=== PATIENT | male | born 1945 | race Caucasian/White ===

== ENCOUNTER 2019-10-02 12:41 | Inpatient (IN) | payer MEDICARE, OTHER, SELFPAY ==
[2019-10-02] VITALS (8 sets, daily range): BP systolic 98–167; BP diastolic 64–90; PULSE 67–75; RESP 14–22; TEMP 36.9–38.4; O2SAT 91–97; BMI 32.5
--- NOTE | ~2019-10-02 | XR_ITS ---
EXAMINATION: XR chest 1V portable INDICATION: Shortness of breath TECHNIQUE: Portable AP chest at 1401 hours COMPARISON: None available FINDINGS: There are airspace opacities of the mid and lower lung zones. No pleural effusion or pneumo thorax is identified. The cardiomediastinal silhouette is normal. IMPRESSION: 1. Airspace opacities of the mid and lower lung zones, consistent with pneumonia versus atelectasis. Reviewed, dictated and finalized at location A. IMPRESSION: 1. Airspace opacities of the mid and lower lung zones, consistent with pneumoni a versus atelectasis.
--- NOTE | 2019-10-02 13:19 | ECG_ITS ---
Measurements Intervals [place] Rate: 67 P: 21 TN: 149 QRS: 5 QRSD: 134 T: -11 QT: 428 QTc: 454 Interpretive Statements SINUS RHYTHM POSSIBLE LEFT ATRIAL ENLARGEMENT RIGHT BUNDLE BRANCH BLOCK BASELINE ARTIFACT- I, III, AVL, V1 ABNORMAL ECG Electronically Signed On 10-02-2019 16:50:25 CDT by Willem Blank D.O.
--- NOTE | 2019-10-02 13:28 | PC.NURSE ---
COVID swab sent to lab
[2019-10-02 13:33] LABS: Basophils Percent Auto 0.2 % (0.2-1.2); Eosinophils Percent Auto 0.2 % (0-4.4); Hematocrit 49.6 % (42.0-52.0); Hemoglobin 16.7 g/dL (14.0-18.0); Immature Granulocyte Absolute 0.01 K/mm3 (0.00-0.031); Immature Granulocyte Percent A 0.2 % (0-0.5); Lymphocytes Absolute Auto 1.04 K/mm3 (0.9-3.2); Mean Corpuscular HGB Conc 33.7 g/dl (32-36); Mean Corpuscular Hemoglobin 31.9 pg (26-34); Mean Corpuscular Volume 94.7 fl (80-100); Mean Platelet Volume 10.4 fl (7.4-10.4); Monocytes Absolute Auto 0.6 K/mm3 (0.1-0.6); Monocytes Percent Auto 10.1 % (2.6-8.5); Neutrophils Absolute Auto 3.8 K/mm3 (1.3-6.7); Neutrophils Percent Auto 70.3 % (45.5-73.1); Platelet Count Result 176 k/mm3 (150-375); Red Blood Count 5.24 M/mm3 (4.6-6.20); Red Cell Distribution Width 12.3 % (11.5-14.5); White Blood Count 5.5 K/mm3 (4.5-10.0)
[2019-10-02 13:38] LABS: Alveolar/Arterial O2 Gradient 52.8 mmHg; Base Excess ABG 0.8 mEq/l (+/-2.0); Carboxyhemoglobin 0.5 % THb (0-2.0); Fractional Inspired Oxygen 21 %; HCO3 ABG 23.8 mEq/l (22.0-26.0); Methemoglobin ABG 0.2 %THb (0-1.5); Oxygen Content ABG 21.8 %vol (16.0-22.0); Oxygen Saturation ABG 91.1 % (95.0-100.0); Oxyhemoglobin 91.3 % THb (90.0-100.0); PO2 ABG 56.2 mmHg (80.0-100.0); PO2 FiO2 Ratio Arterial Blood 2.68 %; pH ABG 7.463 (7.350-7.450)
[2019-10-02 13:39] LABS: Device ROOM AIR; Modified Allen's Test Pass; Site Drawn RIGHT RADIAL
[2019-10-02 13:46] LABS: Prothrombin Time 13.2 Seconds (11.1-14.7)
[2019-10-02 13:47] LABS: Partial Thromboplastin Time 32.7 SECONDS (22.3-36.8)
[2019-10-02 13:49] LABS: Alanine Aminotransferase 41 U/L (4-50); Albumin Level 3.9 g/dL (3.5-5.1); Alkaline Phosphatase 84 U/L (38-126); Aspartate Amino Transferase 65 U/L (17-59); Bilirubin,Total 0.7 mg/dL (0.2-1.3); Blood Urea Nitrogen 18 mg/dL (9-20); Calcium 8.5 mg/dL (8.4-10.2); Carbon Dioxide 27 mmol/L (22-30); Chloride 101 mmol/L (98-107); Estimated CRCL calculation 88 ml/min; Estimated Glomerular Filt Rate > 60; Glucose 99 mg/dL (75-110); Potassium 4.4 mmol/L (3.4-5.0); Sodium 135 mmol/L (137-145)
[2019-10-02 13:56] LABS: Troponin I < 0.012 ng/mL (0.000-0.034)
[2019-10-02 13:58] LABS: CRP 16.2 mg/dL (<1.0)
--- NOTE | 2019-10-02 15:07 | ED.GENADULT ---
HPI - General Adult General Chief complaint: Shortness of Breath/Dyspnea Stated complaint: COVID symptoms Time Seen by Provider: 10/02/19 13:16 Source: patient and family History of Present Illness HPI narrative: 74 years old white male, lives alone, been complaining of feeling sick 8 days ago. Patient been having headache, dry cough, shortness of breath on exertion. Patient denied exposure to anybody with known having COVID-19. Patient attended a wedding libertarian of 120 people 1 week ago without a mask. Patient's daughter is a nurse. Related Data Home Medications Medication Instructions Recorded Confirmed amlodipine 10/02/19 aspirin 81 mg PO DAILY 10/02/19 latanoprost 10/02/19 rosuvastatin mg 10/02/19 vitamin B complex [B tablet 10/02/19 Complex-Vitamin B12] Allergies Allergy/AdvReac Type Severity Reaction Status Date / Time No Known Allergies Allergy Unknown Verified 10/02/19 13:17 Review of Systems Review of Systems: Narrative: CONSTITUTIONAL: Denies fever, chills, or sweats. EYES: Denies visual changes, redness, or discharge. ENT: Denies rhinorrhea, congestion, sore throat, or otalgia. CARDIOVASCULAR: Denies chest pain, palpitations, or edema. RESPIRATORY: Denies cough or dyspnea. GASTROINTESTINAL: Denies abdominal pain, nausea, vomiting, or diarrhea. GENITOURINARY: Denies dysuria or hematuria. SKIN: Denies rash or itching. MUSCULOSKELETAL: Denies back pain, joint pain, or myalgia. NEUROLOGIC: Denies headache, numbness, or weakness. PSYCHIATRIC: Denies anxiety or depression. PMFSH Family History Family History Mother Diabetes mellitus Family history of malignant neoplasm of bone Father Family history of congenital heart disease Social History Social History Smoking status: Never smoker Exam Narrative: Exam Narrative: General appearance: Well-developed, well-nourished, daughter at the bedside Skin: Normal color Head: Normocephalic, nontraumatic Eyes: Clear conjunctiva ENT: Oropharynx normal, ears normal, nose normal Neck: Supple, nontender Chest and respiratory: Mild diminution of air entry bilaterally, few scattered rales and rhonchi. Heart: Regular rate/rhythm Abdomen: Soft, nontender, no organomegaly, quiet bowel sounds Vascular: Normal peripheral pulses, normal capillary refill. 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 Labs, chest x-ray, blood culture, ABG on room air, IV fluids, IV Tylenol ordered. Further plan to follow Differential Diagnosis Differential Diagnosis: Pneumonia, bronchitis, COVID-19, viral syndrome. Vital Signs Vital Signs: Vital Signs Temperature 36.9 C 10/02/19 13:07 Pulse Rate 69 10/02/19 13:07 Respiratory Rate 18 10/02/19 13:07 Blood Pressure 145/89 H 10/02/19 13:07 Pulse Oximetry 92 10/02/19 13:07 Temperature 36.9 C 10/02/19 13:07 Pulse Rate 68 10/02/19 13:55 Respi
--- NOTE | 2019-10-02 19:31 | PC.NURSE ---
This patient, Alpesh Clement, was admitted to [facility] Surg Room 325-01. Patient/family oriented to hospital policies and general routines including ID bracelet, bed and alarms, visiting hours, pain management, procedures, bathroom and other care routines, personal items, smoking policy, room service/diet, and visiting hours. Valuables list has been completed. Information on how to activate the Rapid Response Team has been discussed. Patient/Family are encouraged to report perceived risks to care and to ask questions if they do not understand what they are told or what they should do.
[2019-10-02] MEDS: LACTATED RINGERS 1,000 ML 125 ML IV CONT (20:02)
--- NOTE | 2019-10-02 21:43 | PM.IMHP ---
H&P: HPI History of Present Illness Chief complaint: pneumonia,covid 19 like symptoms Narrative: Alpesh Clement is a 74 year old male who lives home alone. The patient stated he has been ill for at least 6 days. The patient did attend his granddaughter's wedding which consisted of 120 people about a week ago he was there without a mask. His daughter is a nurse as well. He has a nagging dry cough. He coughs so hard that it causes him to have some pleural like pain. He is not coughing anything up. He has been running a fever at least 101 for several days. He just lost his appetite but does not have any loss of smell or taste. Patient said he ate some yogurt today and it tasted normal. He has not had any nausea vomiting or diarrhea. He is not aware of any sick contacts. He has only taken Tylenol for the fever. Patient's O2 saturations were 91 and 92% on room air when he came in so he was placed on oxygen at 2 L per nasal cannula. The patient continues to complain of pleural like pain when he coughs. Patient is being checked for covid 19. Blood cultures and sputum cultures are pending. ABGs was 56.2. AST is 65. C reactive protein is 16.2. Covid 19 pending. Opacities of the mid and lower lung zones consistent with pneumonia versus atelectasis. The patient was empirically started on a Zithromax and Rocephin. Date of service is 10/02/2019 Review of Systems Review of Systems: All systems reviewed & are unremarkable except as noted in HPI and below Constitutional: Constitutional: Reports as per HPI and Reports no additional constitutional complaints Eyes: Eyes: Reports as per HPI and Reports no additional eye complaints ENT: Reports system reviewed and no additional complaints, except as documented and Reports Normal hearing present Cardiovascular: Cardiovascular: Reports no additional cardiovascular complaints Respiratory: Respiratory: Reports no additional respiratory complaints and Reports no additional respiratory complaints Gastrointestinal: Gastrointestinal: Reports as per HPI and Reports no additional gastrointestinal complaints Musculoskeletal: Musculoskeletal: Reports no additional musculoskeletal complaints Integumentary/Breasts: Skin/Breast: Reports system reviewed and no additional complaints, except as docu and Reports as per HPI Neurologic: Reports system reviewed and no additional complaints, except as documented, Reports as per HPI and Reports Normal hearing present Psychiatric: Psychiatric: Reports no additional psychiatric complaints and Reports as per HPI Endocrine: Endocrine: Reports no additional endocrine complaints Hematologic/Lymphatic: Hematologic/Lymphatic: Reports no additional hematologic/lymphatic complaints Allergic/Immunologic: Allergic/Immunologic: Reports no additional allergic/immunologic complaints [facility] Past Medical History Medical History (Updated 10/02/19 @ 21:50 by Kimmie Kenney NP) Glaucoma Hyperlipidemia Hypertension Surgical History Surgical History (Updated 10/02/19 @ 21:50 by Kimmie Kenney NP) History of back surgery History of removal of pigmented skin lesion History of tonsillectomy Family History Family History Mother Diabetes mellitus Family history of malignant neoplasm of bone Father Family history of congenital heart disease Social History Social History (Updated 10/02/19 @ 21:52 by Kimmie Kenney NP) Social History: The patient has 3 daughters. He is . He lives home alone. Lifelong nonsmoker. He does have a glass a wine with dinner every day. He does not have a durable power attorney recruiter for healthcare. Patient tells me that he is a full code. He would like to be intubated if need be. [place] Smoking status: Never smoker Alcohol intake: current Drinks per week: 10 Substance use: never Substance use type: does not use Gender identity (if verbalized by
[2019-10-02] MEDS: ROSUVASTATIN 10 MG TABLET PO (22:34)
[2019-10-03] VITALS (9 sets, daily range): BP systolic 100–147; BP diastolic 55–77; PULSE 63–66; RESP 18–20; TEMP 36.3–38.4; O2SAT 90–95
[2019-10-03] MEDS: guaiFENesin/DEXTROMETHORPHAN 10 ML UDC PO ×2 (02:48→07:41)
[2019-10-03] MEDS: LACTATED RINGERS 1,000 ML 125 ML IV CONT (05:20)
[2019-10-03 06:07] LABS: Basophils Percent Auto 0.2 % (0.2-1.2); Eosinophils Percent Auto 0.6 % (0-4.4); Hemoglobin 15.6 g/dL (14.0-18.0); Immature Granulocyte Absolute 0.02 K/mm3 (0.00-0.031); Immature Granulocyte Percent A 0.4 % (0-0.5); Lymphocytes Absolute Auto 1.49 K/mm3 (0.9-3.2); Lymphocytes Percent Auto 30.6 % (18.3-44.2); Mean Corpuscular HGB Conc 33.2 g/dl (32-36); Mean Corpuscular Hemoglobin 31.5 pg (26-34); Mean Corpuscular Volume 94.8 fl (80-100); Monocytes Absolute Auto 0.7 K/mm3 (0.1-0.6); Monocytes Percent Auto 13.8 % (2.6-8.5); Neutrophils Absolute Auto 2.7 K/mm3 (1.3-6.7); Neutrophils Percent Auto 54.4 % (45.5-73.1); Platelet Count Result 171 k/mm3 (150-375); Red Blood Count 4.96 M/mm3 (4.6-6.20); Red Cell Distribution Width 12.2 % (11.5-14.5); White Blood Count 4.9 K/mm3 (4.5-10.0)
[2019-10-03 06:24] LABS: Lactic Acid 1.1 mmol/L (0.7-2.1)
[2019-10-03 06:42] LABS: Alanine Aminotransferase 36 U/L (4-50); Albumin Level 3.4 g/dL (3.5-5.1); Alkaline Phosphatase 74 U/L (38-126); Aspartate Amino Transferase 57 U/L (17-59); Bilirubin,Total 0.6 mg/dL (0.2-1.3); Blood Urea Nitrogen 15 mg/dL (9-20); CRP 15.1 mg/dL (<1.0); Calcium 8.2 mg/dL (8.4-10.2); Carbon Dioxide 29 mmol/L (22-30); Chloride 100 mmol/L (98-107); Estimated CRCL calculation 86 ml/min; Estimated Glomerular Filt Rate > 60; Glucose 93 mg/dL (75-110); Magnesium 2.2 mg/dL (1.6-2.3); Potassium 4.3 mmol/L (3.4-5.0); Sodium 135 mmol/L (137-145)
[2019-10-03] MEDS: ASPIRIN 81 MG ENTERIC TABLET PO (07:41)
[2019-10-03] MEDS: VITAMIN B COMPLEX CAPSULE 1 CAP PO (07:41)
[2019-10-03] MEDS: ENOXAPARIN 40 MG/0.4 ML SYRINGE SUB-Q (07:41)
[2019-10-03] MEDS: LATANOPROST 0.005% OP SOLN 2.5 ML BTL 1 DROP EACH EYE (07:41)
[2019-10-03] MEDS: amLODIPine BESYLATE 5 MG TABLET PO (07:41)
--- NOTE | 2019-10-03 09:34 | PM.IMPN ---
Progress Note: A&P Assessment and Plan (1) Pneumonia due to 2019 novel coronavirus: Code(s): U07.1 - COVID-19; J12.89 - Other viral pneumonia Status: Acute Assessment and Plan: Positive result on 10/03/2019. CXR demonstrates airspace opacities of the mid and lower lung zones.He has been febrile with T-max 101.2?. No leukocytosis. CRP is elevated. He is maintaining adequate oxygenation on 2 L nasal cannula. Will discontinue Rocephin and azithromycin at this time. Begin dexamethasone 6 mg daily for 10 days. IV fluids have been discontinued given risk for fluid overload. Oxygen as needed with goal O2 92% or above. Wean to goal. Continue supportive care with Tylenol as needed for fever, guaifenesin for cough, and albuterol as needed. Continue to trend acute phase reactants and CXR for changes. Preliminary blood culture show NGTD. Sputum culture is pending. (2) Hypertension: Qualifiers: Hypertension type: essential hypertension Qualified Code(s): I10 - Essential (primary) hypertension Code(s): I10 - Essential (primary) hypertension Status: Chronic Assessment and Plan: Blood pressure was reviewed and is stable though somewhat labile. Continue amlodipine Monitor blood pressure closely (3) Hyperlipidemia: Qualifiers: Hyperlipidemia type: unspecified Qualified Code(s): E78.5 - Hyperlipidemia, unspecified Code(s): E78.5 - Hyperlipidemia, unspecified Status: Chronic Assessment and Plan: LFTs reviewed and are within normal limits. Continue with rosuvastatin Subjective Date/time seen: 10/03/19 09:34 Interval history: Date of service: 10/03/2019 He is doing a bit better today. He feels his shortness of breath is very mildly improved. His cough is about the same as yesterday, and he continues to endorse dry cough which is exacerbated by taking deep breaths. He continues to endorse mild pleuritic pain in the midsternal region which is worsened by coughing. He feels that he is just a little sore all over. He also has a headache that is currently a 3/10 in the temporal region. Last night he said it was about a 9/10. He denies any associated visual changes or confusion. His appetite has been good, and he denies any changes in smell or taste. He does feel weak and lightheaded, and he notes that his lightheadedness is worsened when he has a coughing episode. He denies dizziness. He has not been ambulating around the room. He is urinating regularly and denies dysuria or hematuria. His last bowel movement was approximately 2 days ago. He denies diarrhea. He had trouble sleeping last night due to his headache. He denies abdominal pain, nausea, or vomiting. He endorsed subjective fever and chills. Review of Systems Review of Systems: Narrative: A 12 point review of systems was reviewed with pertinent positives and negatives as per HPI. Exam Narrative: Exam Narrative: Mr. Clement is examined alone today. He is a well-nourished 74-year-old male who is lying supine in bed. He appears comfortable and is in no acute respiratory distress. HR 73, BP 145/82, R 18, T 98.8?, 98% on 2 L. Neuro: awake, alert and oriented x4, speech clear, no focal neuro deficits noted HEENMT: normocephalic, atraumatic, EOMI, sclerae anicteric, moist oral mucosa, normal oropharynx Neck: supple, no lymphadenopathy Respiratory: Scattered rhonchi which clear with coughing, no wheezes,, normal respiratory effort without accessory muscle use Cardio: regular rate, regular rhythm, normal S1-S2 Abdomen: normal to inspection, nondistended, normoactive bowel sounds, soft, nontender to palpation Extremities: BLE without edema, erythema, cyanosis, or clubbing, no pain to palpation, DP pulses 2+ bilaterally Skin: no rashes or lesions, warm and dry Psych: Pleasant and cooperative, appropriate mood and affect, judgment and insight intact Objective Data Vital Signs
[2019-10-03 14:26] LABS: SARS-CoV-2 RNA PCR Positive
--- NOTE | 2019-10-03 14:45 | PC.NURSE ---
Called and notified Mandy BARKLEY that patient COVID is positive.
[2019-10-03] MEDS: DOCUSATE SODIUM 100 MG CAPSULE PO (18:22)
[2019-10-03] MEDS: ROSUVASTATIN 10 MG TABLET PO (21:36)
[2019-10-04 02:00] VITALS: BP 116/62; PULSE 64; RESP 18; TEMP 36.9; O2SAT 94
[2019-10-04 06:00] VITALS: BP 120/71; PULSE 64; RESP 18; TEMP 37.2; O2SAT 96
[2019-10-04 06:03] LABS: Hematocrit 46.2 % (42.0-52.0); Hemoglobin 15.6 g/dL (14.0-18.0); Mean Corpuscular HGB Conc 33.8 g/dl (32-36); Mean Corpuscular Volume 94.7 fl (80-100); Mean Platelet Volume 9.8 fl (7.4-10.4); Platelet Count Result 208 k/mm3 (150-375); Red Blood Count 4.88 M/mm3 (4.6-6.20); White Blood Count 4.7 K/mm3 (4.5-10.0)
[2019-10-04 06:22] LABS: Alanine Aminotransferase 47 U/L (4-50); Albumin Level 3.5 g/dL (3.5-5.1); Alkaline Phosphatase 84 U/L (38-126); Aspartate Amino Transferase 66 U/L (17-59); Bilirubin,Total 0.5 mg/dL (0.2-1.3); Blood Urea Nitrogen 16 mg/dL (9-20); CRP 7.2 mg/dL (<1.0); Calcium 8.2 mg/dL (8.4-10.2); Carbon Dioxide 27 mmol/L (22-30); Chloride 102 mmol/L (98-107); Creatine Kinase 68 U/L (55-170); Estimated CRCL calculation 97 ml/min; Estimated Glomerular Filt Rate > 60; Glucose 95 mg/dL (75-110); Lactate Dehydrogenase 473 U/L (313-618); Potassium 4.3 mmol/L (3.4-5.0); Sodium 135 mmol/L (137-145)
[2019-10-04] MEDS: LATANOPROST 0.005% OP SOLN 2.5 ML BTL 1 DROP EACH EYE (08:34)
[2019-10-04] MEDS: VITAMIN B COMPLEX CAPSULE 1 CAP PO (08:34)
[2019-10-04] MEDS: polyethylene glycoL 3350 17 GM POWD.PACK PO (08:34)
[2019-10-04] MEDS: ASPIRIN 81 MG ENTERIC TABLET PO (08:35)
[2019-10-04] MEDS: amLODIPine BESYLATE 5 MG TABLET PO (08:35)
[2019-10-04] MEDS: ENOXAPARIN 40 MG/0.4 ML SYRINGE SUB-Q (08:35)
[2019-10-04 10:52] VITALS: BP 122/70; PULSE 65; RESP 18; TEMP 36.9; O2SAT 97
--- NOTE | 2019-10-04 14:06 | PM.IMPN ---
Progress Note: A&P Assessment and Plan (1) Pneumonia due to 2019 novel coronavirus: Code(s): U07.1 - COVID-19; J12.89 - Other viral pneumonia Status: Acute Assessment and Plan: Positive result on 10/03/2019. CXR demonstrates airspace opacities of the mid and lower lung zones. T-max 101.2? and he has been afebrile today. No leukocytosis. CRP elevated but improved. He is maintaining adequate oxygenation on 2 L nasal cannula. Rocephin and azithromycin discontinued on 10/02. Will hold off on Dexamethasone at this time given his stable, low oxygen requirements Oxygen as needed with goal O2 92% or above. Continue to wean oxygen. Continue supportive care with Tylenol as needed for fever, guaifenesin for cough, and albuterol as needed. Continue to trend acute phase reactants and CXR for changes. Preliminary blood culture show NGTD. Preliminary sputum culture shows mixed bacterial philly. (2) Hypertension: Qualifiers: Hypertension type: essential hypertension Qualified Code(s): I10 - Essential (primary) hypertension Code(s): I10 - Essential (primary) hypertension Status: Chronic Assessment and Plan: Blood pressure was reviewed and is generally at target Continue amlodipine Monitor blood pressure closely (3) Hyperlipidemia: Qualifiers: Hyperlipidemia type: unspecified Qualified Code(s): E78.5 - Hyperlipidemia, unspecified Code(s): E78.5 - Hyperlipidemia, unspecified Status: Chronic Assessment and Plan: LFTs reviewed and are within normal limits. Continue with rosuvastatin (4) Obstructive sleep apnea: Code(s): G47.33 - Obstructive sleep apnea (adult) (pediatric) Status: Acute Assessment and Plan: Stable on home CPAP Avoid CPAP use while in hospital as he is COVID positive Continue supplemental oxygen as needed Subjective Date/time seen: 10/04/19 14:06 Interval history: Date of service: 10/04/2019 He is feeling a bit better today. He continues to endorse occasional dry cough, especially with deep breaths. He denies any associated chest pain or shortness of breath. He denies fevers or chills. His appetite has been good. He has not had a BM yet this hospital stay. He is urinating regularly without dysuria or hematuria. No headache today. Denies dizziness, lightheadedness, nausea, vomiting, diarrhea, abdominal pain, or weakness. He has no additional concerns. Review of Systems Review of Systems: Narrative: A 12 point review of systems was reviewed with pertinent positives and negatives as per HPI. Exam Narrative: Exam Narrative: Mr. Clement is examined alone today. He is a well-nourished 74-year-old male who is lying supine in bed. He appears comfortable and is in no acute respiratory distress. HR 64, BP 120/71, RR 18, T 98.0?, 96% on 2 L. Neuro: awake, alert and oriented x4, speech clear, no focal neuro deficits noted HEENMT: normocephalic, atraumatic, EOMI, sclerae anicteric, moist oral mucosa, normal oropharynx Neck: supple, no lymphadenopathy Respiratory: Scattered rhonchi which clear with coughing, no wheezes, nonlabored breathing Cardio: regular rate, regular rhythm with S1-S2 Abdomen: nondistended, normoactive bowel sounds, soft, nontender to palpation Extremities: no edema, erythema, cyanosis, clubbing, or tenderness to palpation, DP pulses 2+ bilaterally Skin: no rashes or lesions, warm and dry Psych: Pleasant and cooperative, appropriate mood and affect, judgment and insight intact Objective Data Vital Signs Vital Signs: Vital Signs - 24 hr 10/03/19 18:00 10/03/19 20:41 10/03/19 22:00 Temperature 97.4 F L 98.3 F Pulse Rate 63 65 Respiratory Rate 20 20 Blood Pressure 147/77 H 132/65 Pulse Oximetry 95 93 94 10/04/19 02:00 10/04/19 06:00 10/04/19 10:52 Temperature 98.4 F 99.0 F 98.4 F Pulse Rate 64 64 65 Respiratory Rate 18 18 18 Blood Pressure 116/62 120/71 122/70
[2019-10-04 14:36] VITALS: BP 131/70; PULSE 64; RESP 18; TEMP 37; O2SAT 96
[2019-10-04] MEDS: guaiFENesin/DEXTROMETHORPHAN 10 ML UDC PO (17:02)
[2019-10-04 18:00] VITALS: BP 134/71; PULSE 64; RESP 18; TEMP 37.1; O2SAT 96
[2019-10-04] MEDS: ROSUVASTATIN 10 MG TABLET PO (19:59)
[2019-10-04 22:00] VITALS: BP 126/80; PULSE 72; RESP 18; TEMP 36.5; O2SAT 93
[2019-10-05] VITALS (9 sets, daily range): BP systolic 104–143; BP diastolic 63–81; PULSE 63–76; RESP 16–18; TEMP 36.3–37.2; O2SAT 91–96
[2019-10-05 06:04] LABS: Hematocrit 50.2 % (42.0-52.0); Hemoglobin 16.7 g/dL (14.0-18.0); Mean Corpuscular HGB Conc 33.3 g/dl (32-36); Mean Corpuscular Hemoglobin 32.1 pg (26-34); Mean Corpuscular Volume 96.4 fl (80-100); Mean Platelet Volume 9.6 fl (7.4-10.4); Platelet Count Result 214 k/mm3 (150-375); Red Blood Count 5.21 M/mm3 (4.6-6.20); Red Cell Distribution Width 11.9 % (11.5-14.5); White Blood Count 4.4 K/mm3 (4.5-10.0)
[2019-10-05 06:22] LABS: Alanine Aminotransferase 47 U/L (4-50); Albumin Level 3.7 g/dL (3.5-5.1); Alkaline Phosphatase 92 U/L (38-126); Aspartate Amino Transferase 59 U/L (17-59); Bilirubin,Total 0.6 mg/dL (0.2-1.3); Blood Urea Nitrogen 16 mg/dL (9-20); CRP 5.4 mg/dL (<1.0); Calcium 8.7 mg/dL (8.4-10.2); Carbon Dioxide 26 mmol/L (22-30); Chloride 103 mmol/L (98-107); Estimated CRCL calculation 86 ml/min; Estimated Glomerular Filt Rate > 60; Glucose 97 mg/dL (75-110); Potassium 4.4 mmol/L (3.4-5.0); Sodium 135 mmol/L (137-145)
[2019-10-05] MEDS: ENOXAPARIN 40 MG/0.4 ML SYRINGE SUB-Q (09:44)
[2019-10-05] MEDS: ASPIRIN 81 MG ENTERIC TABLET PO (09:44)
[2019-10-05] MEDS: amLODIPine BESYLATE 5 MG TABLET PO (09:44)
[2019-10-05] MEDS: VITAMIN B COMPLEX CAPSULE 1 CAP PO (09:45)
[2019-10-05] MEDS: LATANOPROST 0.005% OP SOLN 2.5 ML BTL 1 DROP EACH EYE (09:45)
[2019-10-05] MEDS: guaiFENesin/DEXTROMETHORPHAN 10 ML UDC PO ×2 (13:20→17:42)
[2019-10-05] MEDS: ALBUTEROL SULFATE (*SP) INHALER 1 PUFF (13:44)
--- NOTE | 2019-10-05 13:44 | PM.IMPN ---
Progress Note: A&P Assessment and Plan (1) Pneumonia due to 2019 novel coronavirus: Code(s): U07.1 - COVID-19; J12.89 - Other viral pneumonia Status: Acute Assessment and Plan: Positive result on 10/03/2019. CXR demonstrates airspace opacities of the mid and lower lung zones. T-max 101.2? and he has been afebrile >48 hours. No leukocytosis. CRP improved. He has been weaned to room air is maintaining adequate oxygenation. Rocephin and azithromycin discontinued on 10/02. Will hold off on Dexamethasone at this time given his stable oxygen requirements Oxygen as needed with goal O2 92% or above Continue supportive care with Tylenol as needed for fever, guaifenesin for cough, and albuterol. Continue to trend acute phase reactants Preliminary blood culture show NGTD. Preliminary sputum culture shows mixed bacterial philly. (2) Hypertension: Qualifiers: Hypertension type: essential hypertension Qualified Code(s): I10 - Essential (primary) hypertension Code(s): I10 - Essential (primary) hypertension Status: Chronic Assessment and Plan: Blood pressure was reviewed and is generally at target Continue amlodipine Monitor blood pressure closely (3) Hyperlipidemia: Qualifiers: Hyperlipidemia type: unspecified Qualified Code(s): E78.5 - Hyperlipidemia, unspecified Code(s): E78.5 - Hyperlipidemia, unspecified Status: Chronic Assessment and Plan: LFTs reviewed and are within normal limits. Continue with rosuvastatin (4) Obstructive sleep apnea: Code(s): G47.33 - Obstructive sleep apnea (adult) (pediatric) Status: Acute Assessment and Plan: Stable on home CPAP Avoid CPAP use while in hospital as he is COVID positive Continue supplemental oxygen as needed (5) Physical deconditioning: Code(s): R53.81 - Other malaise Status: Acute Assessment and Plan: Patient states that he has felt weaker and was very worn out with minimal activity today. Probably secondary to recent inactivity and worsened by his acute illness. Begin PT/OT. Appreciate assistance. Subjective Date/time seen: 10/05/19 13:44 Interval history: Date of service: 10/05/2019 He got up this morning and took a shower, then noted that he felt rather weak and worn down after and is now more short of breath. He is still on room air. He is concerned that he is getting deconditioned from laying in bed throughout the day. He feels that he is coughing more today. No sputum production. He denies fevers, chills, nausea, vomiting, chest pain, dizziness, or lightheadedness. Review of Systems Review of Systems: Narrative: A 12 point review of systems was reviewed with pertinent positives and negatives as per HPI. Exam Narrative: Exam Narrative: Mr. Clement is examined alone today. He is a well-nourished 74-year-old male who is lying supine in bed. He appears comfortable and is in no acute respiratory distress. HR 66, BP 137/81, RR 18, T 97.5?, 94% on room air Neuro: awake, alert and oriented x4, speech clear, no focal neuro deficits noted, strength 5/5 throughout HEENMT: normocephalic, atraumatic, EOMI, sclerae anicteric, moist oral mucosa, normal oropharynx Neck: supple, no lymphadenopathy Respiratory: Clear to auscultation bilaterally, no wheezes, nonlabored breathing Cardio: regular rate, regular rhythm with S1-S2 Abdomen: nondistended, normoactive bowel sounds, soft, nontender to palpation Extremities: no edema, erythema, cyanosis, clubbing, or tenderness to palpation, DP pulses 2+ bilaterally Skin: no rashes or lesions, warm and dry Psych: Pleasant and cooperative, appropriate mood and affect, judgment and insight intact Objective Data Vital Signs Vital Signs: Vital Signs - 24 hr 10/04/19 14:36 10/04/19 18:00 10/04/19 22:00 Temperature 98.6 F 98.7 F 97.7 F Pulse Rate 64 64 72 Respiratory Rate 18 18 18 B
[2019-10-05] MEDS: ALBUTEROL SULFATE (*SP) AEROSOL 1 PUFF 2 PUFF INHALATION ×2 (13:45→21:39)
[2019-10-05] MEDS: ACETAMINOPHEN 325 MG TABLET 650 MG PO ×2 (17:41→22:37)
[2019-10-05] MEDS: ROSUVASTATIN 10 MG TABLET PO (20:21)
[2019-10-06 02:00] VITALS: BP 159/91; PULSE 65; RESP 16; TEMP 36.4; O2SAT 94
[2019-10-06 06:00] VITALS: BP 133/80; PULSE 59; RESP 16; TEMP 36.8; O2SAT 95
[2019-10-06] MEDS: ACETAMINOPHEN 325 MG TABLET 650 MG PO (06:54)
[2019-10-06 06:57] LABS: CRP 3.6 mg/dL (<1.0)
[2019-10-06] MEDS: VITAMIN B COMPLEX CAPSULE 1 CAP PO (08:13)
[2019-10-06] MEDS: amLODIPine BESYLATE 5 MG TABLET PO (08:13)
[2019-10-06] MEDS: ENOXAPARIN 40 MG/0.4 ML SYRINGE SUB-Q (08:13)
[2019-10-06] MEDS: LATANOPROST 0.005% OP SOLN 2.5 ML BTL 1 DROP EACH EYE (08:14)
[2019-10-06] MEDS: guaiFENesin/DEXTROMETHORPHAN 10 ML UDC PO (08:14)
[2019-10-06] MEDS: ASPIRIN 81 MG ENTERIC TABLET PO (08:14)
[2019-10-06 09:14] VITALS: O2SAT 94
[2019-10-06 10:00] VITALS: BP 130/73; PULSE 74; RESP 16; TEMP 36.3; O2SAT 95
[2019-10-06 14:00] VITALS: BP 117/77; PULSE 66; RESP 16; TEMP 36.4; O2SAT 95
[2019-10-06 15:00] VITALS: O2SAT 93
--- NOTE | 2019-10-06 16:43 | PM.DS ---
DS: Admitting Diagnosis Admitting Diagnosis Admitting Diagnosis: Pneumonia, unspecified organism DS: Discharge Diagnosis Discharge Diagnosis (1) Pneumonia due to 2019 novel coronavirus: Code(s): U07.1 - COVID-19; J12.89 - Other viral pneumonia Status: Acute Assessment and Plan: Positive result on 10/03/2019. His symptoms began approximately 09/24/19. He was febrile T-max 101.2?, however his fever resolved. He had no leukocytosis. CRP and ferritin were elevated but improved. He was weaned to room air and maintained adequate oxygenation. Empiric rocephin and azithromycin were discontinued on 10/03/19 after receiving positive result. Given his stable oxygen requirements, he was not felt to require dexamethasone. His preliminary blood culture show NGTD and final cultures will be monitored. His sputum culture shows mixed bacterial philly. He was educated in detail regarding measures to prevent the spread of COVID-19. He was instructed to monitor his symptoms at home and he will follow up with his PCP in one week. (2) Hypertension: Qualifiers: Hypertension type: essential hypertension Qualified Code(s): I10 - Essential (primary) hypertension Code(s): I10 - Essential (primary) hypertension Status: Chronic Assessment and Plan: Blood pressure was reviewed and were generally well controlled. He will continue amlodipine. (3) Hyperlipidemia: Qualifiers: Hyperlipidemia type: unspecified Qualified Code(s): E78.5 - Hyperlipidemia, unspecified Code(s): E78.5 - Hyperlipidemia, unspecified Status: Chronic Assessment and Plan: LFTs were reviewed and were within normal limits. Continue rosuvastatin. (4) Obstructive sleep apnea: Code(s): G47.33 - Obstructive sleep apnea (adult) (pediatric) Status: Acute Assessment and Plan: He did not use his CPAP during his stay to prevent aerosolization. He will continue at home. (5) Physical deconditioning: Code(s): R53.81 - Other malaise Status: Acute Assessment and Plan: Patient states that he had been feeling weak and run down with minimal activity, probably secondary to recent inactivity and worsened by his acute illness. He requested PT/OT and was found to be at his baseline. DS: Summary Hospital Course Reason for hospitalization: Shortness of breath Hospital Course: Date of admission: 10/02/2019 Date of discharge: 10/06/2019 Alpesh Clement is a 74 year old male who lives at home alone with a history of ERI, HTN, and HLD who presented to the emergency department on 10/02/19 with complaints of worsening shortness of breath and dyspnea. He began having symptoms approximately 09/24/19 of cough, headache, and NI. He denied exposure to known COVID positive contacts, but he had been at a wedding approximately 1 week prior with 120 guests and had not worn a face covering. At presentation, AVSS, WBC 5.5, Na 135, troponin <0.012, CRP 16.2, lactic 1.0, and CXR showing airspace opacities of the mid and lower lung zones. He was admitted to the hospitalist service and was placed on isolation precautions. He was found to be Covid positive. His symptoms began to improve and he was tolerating room air. Given his overall improvement, he was determined to no longer require inpatient care. He was comfortable with return home. I spoke with both him and his daughter about precautions to take at home and worrisome signs and symptoms for which to return. All questions were answered. I reiterated the importance of isolation and then social distancing. He will be following up with his PCP in 1 week. He was discharged in hemodynamically stable condition on 10/06/2019. Please see above for further details. Status at Discharge Functional status at discharge: independent ambulation Overall status at discharge: patient is progressing back to baseline Time Spent with Patient Time attestation: Total time spent prov
--- NOTE | 2019-10-06 18:58 | PC.NURSE ---
Pt is A&O x 3. Pt has discharge orders in and has had IV removed, belongs accounted for and discharge paperwork reviewed. Opportunity for questions was provided and pt exhibited good understanding of discharge instructions. Pt was assisted to the front door by staff.
== END 2019-10-06 18:55 | disposition home or self-care (01) | DRG 177 ==
LOC: ANHED 15:10 → ANH3MEDSUR 10-03 04:12
PROVIDERS: Nurse Practitioner; Admitting Provider Family Medicine; Emergency Provider Emergency Medicine; PCP Internal Medicine; Visit Provider Physician Assistant
DX: U07.1 COVID-19 (principal); J12.89 Other viral pneumonia; I10 Essential (primary) hypertension; E78.5 Hyperlipidemia, unspecified; H40.9 Unspecified glaucoma; G47.33 Obstructive sleep apnea (adult) (pediatric)
CPT/HCPCS: 36415; 36600; 71045; 80053; 82375; 82550; 82728; 82805; 83050; 83605; 83615; 83735; 84443; 84484; 85025; 85027; 85610; 85730; 86140; 87040; 87070; 87205; 87635; 93005; 94640; 96365; 96375; 97161; 97165; 99285; A9270; C9803; J0131; J0456; J0696; J1650; J7120; U0003

== ENCOUNTER → 2019-10-21 09:42 | Outpatient (CLI) | payer OTHER, SELFPAY ==
--- NOTE | ~2019-10-21 | XR_ITS ---
XR chest 2V DATE: 10/21/2019 09:58 INDICATION: Shortness of breath. Acute respiratory disease. History of pneumonia and Covid 19 TECHNIQUE: 2 views chest COMPARISON: 10/02/2019 portable AP chest FINDINGS: There has been interval clearance of the extensive bilateral pulmonary infiltrates since . Bilateral hyperinflation. Normal heart size. No hilar or mediastinal enlargement. No pleural effusion or pulmonary vascular con gestion or pneumothorax. Osteopenia. Degenerative spurring of the thoracic spine. IMPRESSION: Bilateral hyperinflation; no active cardiac pulmonary disease Reviewed, dictated and finalized at location A.
== END ==
DX: U07.1 COVID-19 (principal); R91.8 Other nonspecific abnormal finding of lung field
CPT/HCPCS: 71046

== ENCOUNTER → 2020-07-26 09:42 | Outpatient (CLI) | payer OTHER, SELFPAY ==
--- NOTE | ~2020-07-26 | MR_ITS ---
EXAMINATION: MR foot RT wo con DATE: 07/26/2020 10:27 INDICATION: Peroneal tendinitis presenting with lateral right foot pain TECHNIQUE: Magnetic resonance imaging (MRI) of the right mid and hindfoot and ankle was performed wit hout intravenous contrast. Sequences included sagittal, coronal, and axial proton-density weighted fa st spin echo without and with fat saturation. COMPARISON: None. FINDINGS: Medial ankle ligaments: Tiny heterotopic ossicle likely sequela of chronic sprain along the proximal tibial side of the deep deltoid ligament which appears otherwise normal with preserved striated architecture. Superficial del toid ligaments as well as the spring ligament are normal. Lateral ankle ligaments: The anterior and posterior inferior tibiofibular ligaments are normal. The anterior talofibular, calc aneofibular and posterior talofibular ligaments are normal. Tendons: Achilles tendon is normal. Minimal marrow edema and mild increased tendon signal at the fifth metatar vick insertion of the distal peroneus brevis tendon consistent with mild enthesitis without discrete t ear. The peroneus longus and brevis tendons are otherwise normal with no tenosynovitis. The tibialis anterior and extensor hallucis longus and extensor digitorum longus tendons are normal. The tibialis posterior, flexor digitorum longus and flexor hallucis longus tendons are normal. Plantar fascia: Spot plantar calcaneal spur. Mild thickening and increased signal at the proximal central component o f the plantar aponeurosis with mild marrow edema underlying its calcaneal origin consistent with mild acute on chronic plantar fasciitis/enthesitis. Bones/other: Bone alignment is normal. No fracture or pathologic marrow replacing process. Joint spaces are relati vely preserved. Small bone island at the posterior talar dome. Tarsal tunnel is unremarkable. Fluid: Physiologic amount fluid in the joint spaces. Small multilobulated ganglion cyst at the sinus Tarsi m easuring 2.0 x 1.1 x 0.6 cm. No tenosynovitis, bursitis or other abnormal fluid collections. IMPRESSION: 1. Mild enthesitis at the fifth metatarsal insertion of the peroneus brevis tendon and at the calcane al origin of the plantar aponeurosis. 2. 2.0 x 1.1 x 0.6 cm ganglion cyst at the sinus Tarsi. Reviewed, dictated and finalized at location A. IMPRESSION: 1. Mild enthesitis at the fifth metatarsal insertion of the peroneus brevis ten don and at the calcaneal origin of the plantar aponeurosis. 2. 2.0 x 1.1 x 0.6 cm ganglion cyst at the sinus Tarsi.
== END ==
PROVIDERS: Visit Provider Podiatrist Foot & Ankle Surgery
DX: M76.71 Peroneal tendinitis, right leg (principal); M67.471 Ganglion, right ankle and foot
CPT/HCPCS: 73718

== ENCOUNTER 2021-08-03 10:08 | Emergency (ER) | payer OTHER, SELFPAY ==
--- NOTE | ~2021-08-03 | XR_ITS ---
EXAMINATION: XR foot LT min 3V DATE: 08/03/2021 11:29 INDICATION: Nontraumatic left heel pain TECHNIQUE: Dorsoplantar, two oblique and lateral views of the left foot were obtained. COMPARISON: None. FINDINGS: Bone alignment is normal. No fracture. Moderate osteoarthritis at the first metatarsophalangeal joint . Mild osteoarthritis at the calcaneocuboid and a few tarsometatarsal and interphalangeal joints. Sma ll Achilles calcaneal spur. No cortical erosions or periosteal reaction. No ankle joint effusion. IMPRESSION: 1. 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 2. Small Achilles calcaneal spur. Reviewed, dictated and finalized at location A. IMPRESSION: 1. 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 2. Small Achilles calcaneal spur.
[2021-08-03 10:46] VITALS: BP 151/86; PULSE 61; RESP 16; TEMP 36.2; O2SAT 97
--- NOTE | 2021-08-03 11:04 | ED.EXTPRO ---
HPI - Extremity Problem General Chief complaint: Extremity Problem,Nontraumatic Stated complaint: Lt Heel Pain Time Seen by Provider: 08/03/21 11:05 Source: patient Mode of arrival: ambulatory Limitations: no limitations History of Present Illness HPI Narrative: Alpesh Clement is a 76 yo male with PMH HTN, glaucoma, high cholesterol, who walks 2 miles/day and has L heel pain with weight bearing, uses orthotics, has plantar fascitis in R foot Related Data Home Medications Medication Instructions Recorded Confirmed amlodipine 5 mg PO DAILY 10/02/19 10/02/19 aspirin 81 mg PO DAILY 10/02/19 10/02/19 latanoprost 0.005 % OPHTHALMIC (EYE) DAILY 10/02/19 10/02/19 rosuvastatin 10 mg PO HS 10/02/19 10/02/19 vitamin B complex [B 1 tablet PO DAILY 10/02/19 10/02/19 Complex-Vitamin B12] vitamin B complex [B 1 tablet PO DAILY 10/02/19 10/02/19 Complex-Vitamin B12] Allergies Allergy/AdvReac Type Severity Reaction Status Date / Time No Known Allergies Allergy Unknown Verified 08/03/21 10:56 Review of Systems Review of Systems: CONSTITUTIONAL: Denies fever, chills, sweats. EYES: Denies visual changes, redness, discharge. ENT: Denies rhinorrhea, congestion, sore throat, otalgia. CARDIOVASCULAR: Denies chest pain, palpitations, edema. RESPIRATORY: Denies dyspnea, wheezing, cough GASTROINTESTINAL: Denies abdominal pain, nausea, vomiting, diarrhea. GENITOURINARY: Denies dysuria, hematuria, abnormal discharge SKIN: Denies rash or itching. NEUROLOGIC: Denies numbness, or focal weakness. PSYCHIATRIC: Denies anxiety or depression. Left heel pain PMFSH Past Medical History Medical History Glaucoma Hyperlipidemia Hypertension Obstructive sleep apnea Surgical History Surgical History History of back surgery History of removal of pigmented skin lesion History of tonsillectomy Family History Family History Mother Diabetes mellitus Family history of malignant neoplasm of bone Father Family history of congenital heart disease Social History Social History Social History: The patient has 3 daughters. He is . He lives home alone. Lifelong nonsmoker. He does have a glass a wine with dinner every day. He does not have a durable power staff attorney for healthcare. Patient tells me that he is a full code. He would like to be intubated if need be. [place] Smoking status: Never smoker Alcohol intake: current Drinks per week: 10 Substance use: never Substance use type: does not use Gender identity (if verbalized by the patient): Male Sexual Orientation (if Verbalized by the Patient): Straight or Heterosexual Spiritual care concerns: No Comments At time of signature, I agree with nursing past medical, surgical, social and family history. There is no relevant family history pertinent to the presenting complaint. Exam Narrative: GENERAL: This is a well-nourished, well-developed patient, in mild distress. HEAD: normocephalic, atraumatic. EYES: PERRL. Sclera clear/white. Vision is grossly intact. EARS: External ears normal, . Hearing grossly intact. NOSE: External nose normal without nasal discharge, nares without redness, no rhinorrhea. THROAT: Mucous membranes moist, NECK: Neck supple, non-tender CARDIOVASCULAR: Regular rate and rhythm without murmurs, gallops, or rubs. RESPIRATORY: Clear to auscultation. Breath sounds equal bilaterally. No wheezes, rales, or rhonchi. GASTROINTESTINAL: Not done SKIN: warm, intact with no suspicious lesions or rash, good texture and turgor. NEURO: awake, alert, and oriented to person, place and time. There were no obvious focal neurologic abnormalities. Steady gait EXTREMITIES: Normal range of motion. Point tenderness at the research program coordinator
== END 2021-08-03 12:05 | disposition home or self-care (01) ==
PROVIDERS: Emergency Provider Nurse Practitioner; PCP Internal Medicine
DX: M79.672 Pain in left foot (principal); E78.5 Hyperlipidemia, unspecified; I10 Essential (primary) hypertension; G47.33 Obstructive sleep apnea (adult) (pediatric); H40.9 Unspecified glaucoma; E78.00 Pure hypercholesterolemia, unspecified; Z79.82 Long term (current) use of aspirin
CPT/HCPCS: 73630; 99213; G0463

== ENCOUNTER 2021-08-15 15:03 | Emergency (ER) | payer OTHER, SELFPAY ==
--- NOTE | 2021-08-15 15:06 | ED.MALEGU ---
HPI - Male Genitourinary General Chief complaint: Urogenital-Male Stated complaint: uti complaint Time Seen by Provider: 08/15/21 15:05 Source: patient Mode of arrival: ambulatory Limitations: no limitations History of Present Illness HPI Narrative: Mr. Clement is a 76-year-old male patient presenting to the clinic today with complaints of urinary symptoms x2 to 3 days. He reports he just got back from [place] and he develops symptoms there. He reports he has fever, headache, chills, and urinary hesitancy and low output with dysuria. He does not know how high his temperatures been as he has not been able to take his temperature but he has felt feverish. Related Data Home Medications Medication Instructions Recorded Confirmed amlodipine 5 mg tablet 5 mg PO DAILY 10/02/19 08/15/21 aspirin 81 mg tablet,delayed 81 mg PO DAILY 10/02/19 08/15/21 release rosuvastatin 10 mg tablet 10 mg PO HS 10/02/19 08/15/21 Allergies Allergy/AdvReac Type Severity Reaction Status Date / Time No Known Allergies Allergy Unknown Verified 08/15/21 15:21 Review of Systems Review of Systems: Pertinent positives per HPI. Patient denies any fever, chills, rash, headache, visual changes, dizziness, cough, runny nose, sore throat, shortness of breath, chest pain, palpitations, nausea, vomiting, diarrhea, constipation, abdominal pain. Constitutional: Comments: Pertinent positives per HPI. Patient denies any fever, chills, rash, headache, visual changes, dizziness, cough, runny nose, sore throat, shortness of breath, chest pain, palpitations, nausea, vomiting, diarrhea, constipation, or any abdominal pain. [facility] Past Medical History Medical History Glaucoma Hyperlipidemia Hypertension Obstructive sleep apnea Surgical History Surgical History History of back surgery History of removal of pigmented skin lesion History of tonsillectomy Family History Family History Mother Diabetes mellitus Family history of malignant neoplasm of bone Father Family history of congenital heart disease Social History Social History Social History: The patient has 3 daughters. He is . He lives home alone. Lifelong nonsmoker. He does have a glass a wine with dinner every day. He does not have a durable power transportation escort for healthcare. Patient tells me that he is a full code. He would like to be intubated if need be. [place] Smoking status: Never smoker Alcohol intake: current Drinks per week: 10 Substance use: never Substance use type: does not use Gender identity (if verbalized by the patient): Male Sexual Orientation (if Verbalized by the Patient): Straight or Heterosexual Spiritual care concerns: No Comments At the time of my signature, I reviewed and agree with the nursing past medical, surgical, social, and family history. There is no relevant family history pertinent to the patient complaint. Exam Narrative: General: Well-developed, well nourished, in no apparent distress. Head: Normocephalic, atraumatic. Cardio: Regular rate and rhythm, s1 and s2 normal, no murmur appreciated. Resp: Clear to auscultation bilaterally, no rhonchi, rales, wheezing or rubs. Abdomen: Soft, pliable, bowel sounds present in all quadrants, tender to palpation over the suprapubic area,, no organomegly, no CVAT tenderness. Course Course Emergency Course: Portions of this record may have been created with voice recognition software. Level of Care: Express Care Visit Vital Signs Vital signs: Vital Signs Temperature 36.6 C 08/15/21 15:15 Pulse Rate 85 08/15/21 15:15 Respiratory Rate 18 08/15/21 15:15 Blood Pressure 123/65 08/15/21 15:15 Pulse Oximetry 98
[2021-08-15 15:15] VITALS: BP 123/65; PULSE 85; RESP 18; TEMP 36.6; O2SAT 98
== END 2021-08-15 15:30 | disposition home or self-care (01) ==
PROVIDERS: Emergency Provider Nurse Practitioner Family
DX: N30.01 Acute cystitis with hematuria (principal); E78.5 Hyperlipidemia, unspecified; I10 Essential (primary) hypertension; G47.33 Obstructive sleep apnea (adult) (pediatric); H40.9 Unspecified glaucoma
CPT/HCPCS: 81003; 87077; 87086; 87186; 99213; G0463

== ENCOUNTER 2021-08-17 06:42 | Emergency (ER) | payer OTHER, SELFPAY ==
[2021-08-17] VITALS (12 sets, daily range): BP systolic 147–166; BP diastolic 77–94; PULSE 73–76; RESP 13–26; TEMP 36.3; O2SAT 95–100
--- NOTE | 2021-08-17 07:12 | ED.GENADULT ---
HPI - General Adult General Chief complaint: Urogenital-Male Stated complaint: unable to urinate Time Seen by Provider: 08/17/21 06:52 History of Present Illness HPI narrative: 76-year-old male with history of enlarged prostate presenting to the emergency department for evaluation of decreased urination. Patient states he began having symptoms of generalized illness on Thursday and Thursday. Patient also notes he began having decreased urination. Patient did have follow-up with urgent care and was started on Bactrim on . Patient states since that time he has had no improvement of his symptoms. Patient since last night he has been unable to urinate. Patient does have increased urinary pressure. Patient does have history of enlarged prostate and has had a previous prostate biopsy. Patient follows up with Dr. Ram. Related Data Home Medications Medication Instructions Recorded Confirmed amlodipine 5 mg tablet 5 mg PO DAILY 10/02/19 08/15/21 aspirin 81 mg tablet,delayed 81 mg PO DAILY 10/02/19 08/15/21 release rosuvastatin 10 mg tablet 10 mg PO HS 10/02/19 08/15/21 Allergies Allergy/AdvReac Type Severity Reaction Status Date / Time No Known Allergies Allergy Unknown Verified 08/17/21 06:45 Review of Systems Review of Systems: CONSTITUTIONAL: Denies fever, chills, or sweats. EYES: Denies visual changes, redness, or discharge. ENT: Denies rhinorrhea, congestion, sore throat, or otalgia. CARDIOVASCULAR: Denies chest pain, palpitations, or edema. RESPIRATORY: Denies cough or dyspnea. GASTROINTESTINAL: Denies abdominal pain, nausea, vomiting, or diarrhea. GENITOURINARY: See HPI SKIN: Denies rash or itching. MUSCULOSKELETAL: Denies back pain, joint pain, or myalgia. NEUROLOGIC: Denies headache, numbness, or weakness. [facility] Past Medical History Medical History Glaucoma Hyperlipidemia Hypertension Obstructive sleep apnea Surgical History Surgical History History of back surgery History of removal of pigmented skin lesion History of tonsillectomy Family History Family History Mother Diabetes mellitus Family history of malignant neoplasm of bone Father Family history of congenital heart disease Social History Social History Social History: The patient has 3 daughters. He is . He lives home alone. Lifelong nonsmoker. He does have a glass a wine with dinner every day. He does not have a durable power transactional attorney for healthcare. Patient tells me that he is a full code. He would like to be intubated if need be. [place] Smoking status: Never smoker Alcohol intake: current Drinks per week: 10 Substance use: never Substance use type: does not use Gender identity (if verbalized by the patient): Male Sexual Orientation (if Verbalized by the Patient): Straight or Heterosexual Spiritual care concerns: No Exam Narrative: APPEARANCE: Well appearing, no pain, no distress, well-nourished. HEAD: normocephalic, atraumatic. EYES: PERRLA/EOMI, conjunctivae clear. NOSE: Normal no drainage NECK: Supple. No adenopathy, no masses. RESPIRATORY: Airway patent, respirations nonlabored. Clear to auscultation bilaterally, no rales, rhonchi, wheezing. CARDIOVASCULAR: Regular rate and rhythm without murmurs rubs or gallops. ABDOMINAL: Soft, suprapubic tenderness to palpation. MUSCULOSKELETAL: Moves all extremities. Strength/ROM intact, No edema, No calf tenderness. NEURO: Alert. Cranial nerves II through XII intact. Good gait. Good coordination SKIN: Warm, dry. Normal Color PSYCHIATRIC: Normal affect/mood. Course Course Emergency Course: Patient had 647 mL of retained urine postvoid residual bladder scan. Patient has significant
[2021-08-17 07:49] LABS: Appearance Urine Clear (Clear); Bilirubin Urine Negative (Negative); Blood Urine 2+ (Negative); Color Urine Yellow (Yellow); Glucose Urine UA Negative (Negative); Ketones Urine Negative (Negative); Leukocyte Esterase Ur 2+ LEU/UL (Negative); Nitrate Urine Positive (Negative); Protein Urine 1+ mg/dL (Negative); Specific Grav Ur 1.015 (1.001-1.035); Urobilinogen Urine >=8.0 mg/dL (<2.0); pH Urine 5.5 (5.0-9.0)
[2021-08-17 08:00] LABS: Bacteria Urine Trace /hpf; Mucus Urine Rare /lpf; WBC Urine >75 /hpf
[2021-08-17 08:02] LABS: Add Urine Microscopic? YES
[2021-08-17] MEDS: TAMSULOSIN HCL 0.4 MG CAPSULE PO (09:20)
== END 2021-08-17 09:31 | disposition home or self-care (01) ==
PROVIDERS: Emergency Provider Emergency Medicine
DX: N40.1 Benign prostatic hyperplasia with lower urinary tract symptoms (principal); R33.8 Other retention of urine; N30.00 Acute cystitis without hematuria; E78.5 Hyperlipidemia, unspecified; I10 Essential (primary) hypertension; G47.33 Obstructive sleep apnea (adult) (pediatric); H40.9 Unspecified glaucoma
CPT/HCPCS: 51702; 81001; 87077; 87086; 87186; 99283; A9270

== ENCOUNTER → 2023-01-03 09:11 | Outpatient (CLI) | payer OTHER, SELFPAY ==
--- NOTE | ~2023-01-03 | MR_ITS ---
MRI of the right shoulder Technique: Axial proton-density fat-sat images, coronal proton density fat-sat and T2 fat-sat images, and sagittal T1-weighted and T2 fat-sat images were acquired. Clinical History: Pain Findings: There is severe AC joint degenerative change, prominent bony productive change at the dista l clavicle as well as small subacromial spur. Coracoclavicular, coracoacromial, and coracohumeral lig aments appear intact. There is severe supraspinatus tendinosis, and mild infraspinatus tendinosis. No partial or full-thick ness tear of the tendons is identified. Subscapularis tendon is intact with moderate tendinosis. Tend on of long head of the biceps is intact, with probable intra-articular tendinosis. No definite labral tear identified. There is apparent thickening and increased signal of the inferior glenohumeral ligament. No significa nt glenohumeral joint effusion or degenerative change. There is no significant fluid in the subacromi al/subdeltoid bursa. No muscle atrophy or edema identified. Impression: Findings suggestive of adhesive capsulitis. Severe AC joint degenerative change, as detailed above. Diffuse rotator cuff tendinosis without partial or full-thickness tear. Reviewed, dictated and finalized at location . Impression: Findings suggestive of adhesive capsulitis. Severe AC joint degenerative change, as detailed above. Diffuse rotator cuff tendinosis without partial or full-thickness tear.
--- NOTE | ~2023-01-03 | MR_ITS ---
MRI of the left shoulder Technique: Axial proton-density fat-sat images, coronal proton density fat-sat and T2 fat-sat images, and sagittal T1-weighted and T2 fat-sat images were acquired. Clinical History: Pain Findings: There is severe AC joint degenerative change. There is bony productive change at the distal clavicle, with small subacromial spur. Coracoclavicular, coracoacromial, and coracohumeral ligaments are intact. There is moderate supraspinatus stenosis and mild infraspinatus tendinosis. No partial or full-thickn ess tear of these tendons is seen. Subscapularis tendon is intact with minimal tendinosis. Tendon of the long head of the biceps is intact. Suspected degenerative tearing of the posterior labrum. Inferior glenohumeral ligament is intact. There is moderate diffuse chondromalacia of the humeral hea d. There is probable focal high-grade chondromalacia at the central glenoid with focal subchondral ma rrow edema. No significant joint effusion seen. No fluid distention of the subacromial/subdeltoid bur sa. No muscle atrophy or edema. Impression: Probable degenerative tearing of the posterior labrum. Severe AC joint degenerative change. Mild glenohumeral joint degenerative change. Reviewed, dictated and finalized at location . Impression: Probable degenerative tearing of the posterior labrum. Severe AC joint degenerative change. Mild glenohumeral joint degenerative change.
== END ==
DX: M75.41 Impingement syndrome of right shoulder (principal); M19.011 Primary osteoarthritis, right shoulder; M67.813 Other specified disorders of tendon, right shoulder; M24.111 Other articular cartilage disorders, right shoulder; M75.42 Impingement syndrome of left shoulder; M19.012 Primary osteoarthritis, left shoulder; M24.112 Other articular cartilage disorders, left shoulder
CPT/HCPCS: 73221

== ENCOUNTER 2024-11-29 11:30 | Emergency (ER) | payer OTHER, SELFPAY ==
[2024-11-29 11:46] VITALS: BP 141/74; PULSE 68; RESP 16; TEMP 36.3; O2SAT 100
--- NOTE | 2024-11-29 12:18 | ED.BACK ---
HPI - Back Pain/Injury General Chief Complaint: Back Pain/Injury Stated Complaint: Back Pain Time Seen by Provider: 11/29/24 11:55 Source: patient and RN notes reviewed Mode of arrival: ambulatory Limitations: no limitations History of Present Illness HPI Narrative: 79-year-old male presents Express Care complaining of low back injury yesterday. Patient said he was caring a water can full of approximately 2.5 gal of water when he injured his low back moving the can water. Since then the patient reports shooting pains down both of his legs and low back pain. Says the pain is worse with bending at the waist. Patient has tried Tylenol with no relief. Patient reports having history of low back problems and previous low back surgery. Patient denies any falls or any other injuries. Patient denies any numbness, tingling, saddle anesthesia, loss of bowel or bladder function, or leg weakness. Related Data Home Medications ?Medication ?Instructions ?Recorded ?Confirmed ?Last Taken ?Type amlodipine 5 mg tablet 5 mg PO DAILY 10/02/19 08/15/21 Unknown History aspirin 81 mg tablet,delayed 81 mg PO DAILY 10/02/19 08/15/21 Unknown History release finasteride 5 mg tablet mg 11/29/24 Unknown History latanoprost 0.005 % eye drops drp 11/29/24 Unknown History rosuvastatin 20 mg tablet mg 11/29/24 Unknown History tirzepatide (weight loss) 15 mg subcut 11/29/24 Unknown History mg/0.5 mL subcutaneous pen injector (Zepbound) Allergies Allergy/AdvReac Type Severity Reaction Status Date / Time No Known Allergies Allergy Unknown Verified 11/29/24 11:40 Review of Systems Review of Systems: CONSTITUTIONAL: Denies fever, chills, or sweats. EYES: Denies visual changes, redness, or discharge. ENT: Denies rhinorrhea, congestion, sore throat, or otalgia. CARDIOVASCULAR: Denies chest pain, palpitations, or edema. RESPIRATORY: Denies cough or dyspnea. GASTROINTESTINAL: Denies abdominal pain, nausea, vomiting, or diarrhea. GENITOURINARY: Denies dysuria or hematuria. SKIN: Denies rash or itching. MUSCULOSKELETAL: Denies back pain, joint pain, or myalgia. NEUROLOGIC: Denies headache, numbness, loss of bowel or bladder function, leg weakness saddle anesthesia, or weakness. PSYCHIATRIC: Denies anxiety or depression. All other systems reviewed are negative, except as documented in HPI. [facility] Past Medical History Medical History Obstructive sleep apnea Glaucoma Hyperlipidemia Hypertension Surgical History Surgical History History of removal of pigmented skin lesion History of tonsillectomy History of back surgery Family History Family History Mother Diabetes mellitus Family history of malignant neoplasm of bone Father Family history of congenital heart disease Social History Social History Social History: The patient has 3 daughters. He is . He lives home alone. Lifelong nonsmoker. He does have a glass a wine with dinner every day. He does not have a durable power software product specialist for healthcare. Patient tells me that he is a full code. He would like to be intubated if need be. From the [place] Smoking status: Never smoker Alcohol intake: current Drinks per week: 10 Substance use: never Substance use type: does not use Gender identity (if verbalized by the patient): Male Sexual Orientation (if Verbalized by the Patient): Straight or Heterosexual Spiritual care concerns: No Comments At the time of my signature, I reviewed and agree with the nursing past medical, surgical, social, and family history. There is no relevant family history pertinent to the patient complaint. Exam Narrative: GENERAL: This is a well-nourished, well-developed adult, in no apparent distress. They are non ill-appearing, nontoxic appearing. HEAD: normocephalic, atraumatic. EYES: Sclera clear/white. Conjunctiva normal. Vision is grossly intact. Extraocular movements intact EARS: External ears normalHearing grossly intact. NOSE: External nose normal THROAT: Mucous membranes moist, NECK: Neck supple CARDIOVASCULAR: Regular rate and rhythm RESPIRATORY: Respiratory rate normal, respiratory effort nonlabored, no respiratory distress SKIN: warm, Dry, intact with no suspicious lesions or rash, good texture and turgor. NEURO: awake, alert, and oriented to person, place and time. There were no obvious focal neurologic abnormalities. EXTREMITIES: No joint tenderness, effusion, or edema noted. BACK: Nontender without deformity. No CVA tenderness. Cervical, thoracic, lumbar point tenderness, crepitus, or step-offs. Pain elicited with movement of the lumbar back. Course Course Emergency Course: Portions of this record may have been created with voice recognition software Level of Care: Express Care Visit Vital Signs Vital signs: Vital Signs Temperature 97.3 F L 11/29/24 11:46 Pulse Rate 68 11/29/24 11:46 Respiratory Rate 16 11/29/24 11:46 Blood Pressure 141/74 H 11/29/24 11:46 Pulse Oximetry 100 11/29/24 11:46 Temperature 97.3 F L 11/29/24 11:46 Pulse Rate 68 11/29/24 11:46 Respiratory Rate 16 11/29/24 11:46 Blood Pressure 141/74 H 11/29/24 11:46 Pulse Oximetry 100 11/29/24 11:46 Reviewed MDM - Back Pain/Injury MDM Narrative Medical decision making narrative: Patient likely has lumbar strain was sciatica symptoms. No other neurological symptoms. Prescribe a course of prednisone along with muscle relaxers. Discussed physical exam findings. Advised supportive measures and signs/symptoms to go to the ER. Pt is appropriate for outpt treatment and f/u. Differential Diagnosis Differential diagnosis: Likely lumbar radiculopathy, sciatica and strain of lumbar region Critical Care Time Critical Care Time Critical Care Time: No Discharge Plan Discharge Clinical Impression: Low back pain Qualifiers: Chronicity: acute Back pain laterality: bilateral Sciatica presence: with sciatica Sciatica laterality: bilateral sciatica Qualified Code(s): M54.42 - Lumbago with sciatica, left side Patient Disposition: Home Condition: Stable Instructions: Acute Low Back Pain (ED), Lower Back Exercises (ED) Additional Instructions: Take the muscle relaxer as directed. Do not drive or operate heavy machine, or work while taking the medication as it can make you drowsy. Take the prednisone as directed. You may use [id number] lidocaine patches as needed for pain. Follow instructions on the labeling. You may take up to 1000 mg Tylenol every 6-8 hours. Do not exceed 1000 mg per dose, do exceed more than 4000 mg of Tylenol in a day. Apply ice to the affected area for 24 hours, 20 minutes a few times a day thin apply heat to the affected area 20 minutes, few times a day. Please follow-up with your primary care provider if pain persist specially after 10 days. Rest. Avoid pushing, pulling, lifting --running or excessive walking-- or anything that worsens the symptoms You may try stretching your lower back, light low back exercises, or doing spinal decompression to help with symptoms. Go to the emergency department if you develop any numbness or tingling to your groin, weakness in your legs, or any loss of bowel or bladder function. Patient Language: [place] Prescriptions: New prednisone 20 mg tablet 40 mg PO DAILY 5 Days Qty: 10 0RF methocarbamol 750 mg tablet 750 mg PO TID Qty: 20 0RF No Action latanoprost 0.005 % drops finasteride 5 mg tablet rosuvastatin 20 mg tablet Zepbound 15 mg/0.5 mL pen injector SUBCUT tamsulosin [Flomax] 0.4 mg capsule 0.4 mg PO DAILY Qty: 14 0RF amlodipine 5 mg tablet 5 mg PO DAILY aspirin 81 mg Tablet,Delayed Release (Dr/Ec) 81 mg PO DAILY Follow-up/Referrals: PHYSICIAN,CERTIFIED FLIGHT INSTRUCTOR [Primary Care Provider, Internal Medicine] Time of Disposition: 12:12
== END 2024-11-29 12:17 | disposition home or self-care (01) ==
DX: M54.42 Lumbago with sciatica, left side (principal); M54.41 Lumbago with sciatica, right side; I10 Essential (primary) hypertension; E78.5 Hyperlipidemia, unspecified; H40.9 Unspecified glaucoma; Z79.82 Long term (current) use of aspirin
CPT/HCPCS: 99213; G0463

== ENCOUNTER 2025-03-08 11:31 | Outpatient (CLI) | payer OTHER, SELFPAY ==
--- NOTE | ~2025-03-08 | MR_ITS ---
EXAMINATION: MR lumbar spine wo con DATE: 03/08/2025 12:15 INDICATION: Low back pain. TECHNIQUE: Magnetic resonance imaging (MRI) of the lumbar spine was performed without intravenous contrast. COMPARISON: Lumbar spine MRI 12/30/2005 FINDINGS: Bone alignment is normal. Vertebral body heights are normal. Intervertebral disc heights are normal. The distal spinal cord signal intensity is normal. The conus medullaris is at T12-L1. The following disc levels are specifically discussed: L1-L2: The disc is mildly bulging. There is mild bilateral facet joint osteoarthritis. There is mild left neural foraminal stenosis. There is no central canal stenosis. L2-L3: The disc is bulging. There is severe right and moderate left facet joint osteoarthritis. There is mild bilateral neural foraminal stenosis. There is mild central canal stenosis. L3-L4: The disc is bulging. There is severe bilateral facet joint osteoarthritis. There is mild bilateral neural foraminal stenosis. There is mild central canal stenosis. L4-L5: The disc is bulging with superimposed left central extrusion with 19 mm superior extension. There is severe bilateral facet joint osteoarthritis. There is mild right and moderate left neural foraminal stenosis. There is mild central canal stenosis at the midline. There is severe stenosis of left lateral recess. L5-S1: The disc is bulging and has an annular fissure. There is moderate right and severe left facet joint osteoarthritis. There is mild bilateral neural foraminal stenosis. There is mild central canal stenosis. IMPRESSION: 1. Moderate lumbar spondylosis, worsened from 12/30/2005. Reviewed, dictated and finalized at location E. [employer] EX[employer]SE[employer]
== END 2025-03-08 11:32 | disposition home or self-care (01) ==
LOC: MICIMG 11:32
DX: M47.816 Spondylosis without myelopathy or radiculopathy, lumbar region (principal)
CPT/HCPCS: 72148